=== PATIENT | female | born 1975 | race Caucasian/White ===

== ENCOUNTER 2020-11-16 04:59 | Emergency (ER) | payer OTHER ==
[~2020-11-16 04:59] MED LIST: AMOXICILLIN500 M1 PO; CYCLOBENZAPRINE10 MG PO
[2020-11-16 05:30] LABS: HEMOGLOBIN 12.4 gm/dl (12.3-15.3); RED BLOOD COUNT 4.49 M/UL (4.00-5.10); WHITE BLOOD COUNT 8.3 K/UL (4.5-11.0)
[2020-11-16 06:05] LABS: BUN/CREATININE RATIO 14 (0-10)
== END 2020-11-16 06:58 | disposition home or self-care (01) ==
LOC: ER1 04:59
PROVIDERS: Emergency Medicine
DX: R00.2 Palpitations (principal); Z86.16 Personal history of COVID-19
CPT/HCPCS: 71045; 80053; 82550; 82553; 83735; 83874; 83880; 84484; 85025; 93005; 99285

== ENCOUNTER 2021-01-13 19:24 | Emergency (ER) | payer OTHER ==
[~2021-01-13] VITALS: Ht 157.5 cm; Wt 112.0 kg
[2021-01-13 22:02] LABS: HEMOGLOBIN 11.4 gm/dl (12.3-15.3); RED BLOOD COUNT 4.01 M/UL (4.00-5.10); WHITE BLOOD COUNT 10.5 K/UL (4.5-11.0)
[2021-01-13 22:21] LABS: BUN/CREATININE RATIO 10 (0-10)
== END 2021-01-14 03:16 | disposition home or self-care (01) ==
LOC: ER1 19:24
PROVIDERS: Physician Assistant
DX: Z23 Encounter for immunization (principal); U07.1 COVID-19; R07.89 Other chest pain; K21.9 Gastro-esophageal reflux disease without esophagitis; J45.909 Unspecified asthma, uncomplicated
CPT/HCPCS: 71045; 80053; 82550; 82553; 83874; 83880; 84484; 85025; 85379; 85610; 85730; 93005; 99285; M0243; Q9967; U0002

== ENCOUNTER → 2021-02-25 | Outpatient (CLI) | payer OTHER | LOC: KOH-I 10:52 | DX: M54.2 Cervicalgia (principal); M54.50 Low back pain, unspecified; M47.812 Spondylosis without myelopathy or radiculopathy, cervical region; M47.816 Spondylosis without myelopathy or radiculopathy, lumbar region | CPT/HCPCS: 72040; 72100 ==

== ENCOUNTER → 2021-03-25 | Outpatient (CLI) | payer BC | LOC: ECHO 10:45 | DX: I10 Essential (primary) hypertension (principal); R60.9 Edema, unspecified | CPT/HCPCS: ECHO; 93306 ==

== ENCOUNTER 2021-03-30 20:56 | Observation (INO) | payer BC ==
[~2021-03-30] VITALS: Ht 162.6 cm; Wt 112.0 kg
[2021-03-30 21:33] LABS: HEMOGLOBIN 10.9 gm/dl (12.3-15.3); RED BLOOD COUNT 3.92 M/UL (4.00-5.10); WHITE BLOOD COUNT 10.2 K/UL (4.5-11.0)
[2021-03-30 22:06] LABS: BUN/CREATININE RATIO 11 (0-10)
[2021-03-31] MEDS ORDERED: ZYRTEC10 MG PO (00:42)
[2021-03-31] MEDS ORDERED: HYDROCHLOROTH12.5 MG PO (00:42)
[2021-03-31] MEDS ORDERED: AMOXICILLIN500 M1 PO (00:42)
[2021-03-31] MEDS ORDERED: OMEPRAZOLE20 M1 PO (00:43)
[2021-03-31] MEDS ORDERED: SINGULAIR10 MG PO (00:44)
[2021-03-31] MEDS ORDERED: METOPROLOL SUCC25 MG PO (00:44)
[2021-03-31] MEDS ORDERED: MIDOL CAPLET1 EAC1 PO (00:48)
[2021-03-31 06:14] LABS: HEMOGLOBIN 10.1 gm/dl (12.3-15.3); RED BLOOD COUNT 3.7 M/UL (4.00-5.10)
[2021-03-31 06:15] LABS: WHITE BLOOD COUNT 7.5 K/UL (4.5-11.0)
[2021-03-31 06:30] LABS: BUN/CREATININE RATIO 15 (0-10)
[2021-03-31] MEDS ORDERED: AUGMENTIN 875-1 EACH PO (12:23)
[2021-03-31] MEDS ORDERED: POTASSIUM CHLO20 ME1 PO (12:23)
[2021-03-31] MEDS ORDERED: ASPIRIN EC81 MG PO (12:23)
[2021-03-31] MEDS ORDERED: NITROSTAT0.4 MG SL (12:31)
[2021-03-31] MEDS ORDERED: FERROUS GLUCON324 M1 PO (13:08)
== END 2021-03-31 15:38 | disposition home or self-care (01) ==
LOC: ER1 20:56 → CDU 22:56 → M/S 22:56
PROVIDERS: Emergency Medicine; ADMIT Internal Medicine
DX: R07.89 Other chest pain (principal); E87.6 Hypokalemia; I10 Essential (primary) hypertension; D50.9 Iron deficiency anemia, unspecified; K21.9 Gastro-esophageal reflux disease without esophagitis; J32.9 Chronic sinusitis, unspecified; E66.9 Obesity, unspecified; Z68.41 Body mass index [BMI] 40.0-44.9, adult; Z86.16 Personal history of COVID-19; Z79.2 Long term (current) use of antibiotics; Z79.899 Other long term (current) drug therapy
CPT/HCPCS: 36415; 71045; 80048; 80053; 80061; 82550; 82553; 83540; 83550; 83735; 83874; 84132; 84484; 84703; 85025; 93005; 99285; G0378; J3480

== ENCOUNTER → 2021-08-09 | Outpatient (CLI) | payer BC ==
[~2021-08-09] MED LIST changes: +ASPIRIN EC81 MG PO; +AUGMENTIN 875-1 EACH PO; +FERROUS GLUCON324 M1 PO; +HYDROCHLOROTH12.5 MG PO; +METOPROLOL SUCC25 MG PO; +MIDOL CAPLET1 EAC1 PO; +NITROSTAT0.4 MG SL; +OMEPRAZOLE20 M1 PO; +POTASSIUM CHLO20 ME1 PO; +SINGULAIR10 MG PO; +ZYRTEC10 MG PO
== END ==
LOC: KOH-I 09:49
DX: M96.1 Postlaminectomy syndrome, not elsewhere classified (principal)
CPT/HCPCS: 72100

== ENCOUNTER → 2021-08-20 | Outpatient (CLI) | payer BC | LOC: KOH-I 08:15 | DX: M47.22 Other spondylosis with radiculopathy, cervical region (principal); M25.78 Osteophyte, vertebrae; M48.02 Spinal stenosis, cervical region | CPT/HCPCS: 72141 ==